=== PATIENT | female | born 1955 | race African-American/Black ===

== ENCOUNTER 2018-11-07 13:11 | Emergency (ER) | payer MEDICAID ==
[2018-11-07 13:27] LABS: ABSOLUTE BASOPHILS # (AUTO) 0.1 10^3/uL (0.0-0.2); ABSOLUTE EOSINOPHILS # (AUTO) 0.1 10^3/uL (0.0-0.6); ABSOLUTE LYMPHOCYTES (AUTO) 2.4 10^3/uL (0.5-4.7); ABSOLUTE MONOCYTES (AUTO) 0.5 10^3/uL (0.1-1.4); ABSOLUTE NEUT (AUTO) 1.6 10^3/uL (1.7-8.2); BASOPHILS % (AUTO) 1.1 % (0-2); EOSINOPHILS % (AUTO) 1.6 % (0-6); HEMATOCRIT 36.1 % (36.0-47.0); HEMOGLOBIN 11.8 g/dL (12.0-15.5); LYMPHOCYTES % (AUTO) 51.6 % (13-45); MEAN CORPUSCULAR HEMOGLOBIN 27.8 pg (27.0-33.4); MEAN CORPUSCULAR HGB CONC 32.7 g/dL (32.0-36.0); MEAN CORPUSCULAR VOLUME 85 fl (80-97); MONOCYTES % (AUTO) 10.2 % (3-13); PLATELET COUNT 530 10^3/uL (150-450); RED BLOOD COUNT 4.24 10^6/uL (3.72-5.28); RED CELL DISTRIBUTION WIDTH 12.4 % (11.5-14.0); SEGMENTED NEUTROPHILS % (AUTO) 35.5 % (42-78); TOTAL CELLS COUNTED % (AUTO) 100 %; WHITE BLOOD COUNT 4.6 10^3/uL (4.0-10.5)
[2018-11-07 13:50] LABS: ALANINE AMINOTRANSFERASE 8 U/L (9-52); ALBUMIN 4.6 g/dL (3.5-5.0); ALKALINE PHOSPHATASE 64 U/L (38-126); ANION GAP 13 (5-19); ASPARTATE AMINO TRANSFERASE 26 U/L (14-36); BILIRUBIN,DIRECT 0.2 mg/dL (0.0-0.4); BILIRUBIN,TOTAL 0.4 mg/dL (0.2-1.3); BLOOD UREA NITROGEN 18 mg/dL (7-20); CALCIUM 9.9 mg/dL (8.4-10.2); CARBON DIOXIDE 29 mmol/L (22-30); CHLORIDE 100 mmol/L (98-107); CREATINE KINASE 60 U/L (30-135); GLUCOSE 136 mg/dL (75-110); POTASSIUM 4.6 mmol/L (3.6-5.0); SODIUM 142.3 mmol/L (137-145); TOTAL PROTEIN 7.6 g/dL (6.3-8.2)
[2018-11-07 14:07] LABS: CREATINE KINASE MB 0.75 ng/mL (<4.55)
[2018-11-07 14:08] LABS: TROPONIN I < 0.012 ng/mL
--- NOTE | 2018-11-07 15:37 | RADIOLOGY REPORT (SQ) ---
EXAM DESCRIPTION: CT HEAD WITHOUT COMPLETED DATE/TIME: 11/07/2018 3:23 pm REASON FOR STUDY: syncpoe COMPARISON: None. TECHNIQUE: Axial images acquired through the brain without intravenous contrast. Images reviewed wi th bone, brain and subdural windows. Additional sagittal and coronal reconstructions were generated. Images stored on PACS. All CT scanners at this facility use dose modulation, iterative reconstruction, and/or weight based d osing when appropriate to reduce radiation dose to as low as reasonably achievable (ALARA). [facility]: Dose Right [facility]: CareDose [facility]: Dose Right [facility]: Teradose 4D [facility]: PSI Systems RADIATION DOSE: CT Rad equipment meets quality standard of care and radiation dose reduction techniq ues were employed. CTDIvol: 53.2 mGy. DLP: 1097 mGy-cm. mGy. LIMITATIONS: None. FINDINGS: VENTRICLES: Normal size and contour. CEREBRUM: No masses. No hemorrhage. No midline shift. No evidence for acute infarction. Normal gra y/white matter differentiation. No areas of low density in the white matter. CEREBELLUM: No masses. No hemorrhage. No alteration of density. No evidence for acute infarction. EXTRAAXIAL SPACES: No fluid collections. No masses. ORBITS AND GLOBE: No intra- or extraconal masses. Normal contour of globe without masses. CALVARIUM: No fracture. PARANASAL SINUSES: No fluid or mucosal thickening. SOFT TISSUES: No mass or hematoma. OTHER: No other significant finding. IMPRESSION: NORMAL BRAIN CT WITHOUT CONTRAST. EVIDENCE OF ACUTE STROKE: NO. COMMENT: Quality ID # [id number]: Final reports with documentation of one or more dose reduction techniques (e.g., Automated exposure control, adjustment of the mA and/or kV according to patient size, use of iterative reconstruction technique) TECHNICAL DOCUMENTATION: JOB ID: [id number] [facility]- All Rights Reserved Reading location - IP/workstation name: [email or web address]
--- NOTE | 2018-11-07 16:27 | ER Document Report ---
ED General - General Chief Complaint: Syncope Stated Complaint: SYNCOPE Time Seen by Provider: 11/07/18 14:49 Notes: Patient is a 63-year-old female presents to the emergency department for syncopal episode. According to EMS report patient was found to be hypotensive with positive orthostatics. Had a syncopal episode with them. This is per nursing staff who spoke with EMS. Upon my evaluation of the patient's she states all she drank this morning was "a little bit of Sprite." Patient states she then walked from her house to [facility]. It is very hot out today, patient states "I tried to stay in the shade when I could." Patient's denying chest pain, shortness of breath, dizziness, weakness, lightheadedness upon my evaluation. Patient has already received 1 L of lactated Ringer's via EMS. Patient states prior to the syncopal episode she felt "really hot" and "lightheaded." Patient states she did not have any chest pain, shortness of breath, or headache. Patient is denying any headache or head trauma but it was an unwitnessed fall. Patient's denying any pain in her neck or back. Patient states she does have a history of seizures and was recently moved to [place] from [place] to live with her daughter. States she was recently changed from Depakote to Trileptal for her seizures. States she does follow-up with a neurologist regularly. Patient states she is unsure of the exact address of where she lives. States she does know the [address] States she is unsure of where her address is compared to the hospital. - Related Data Allergies/Adverse Reactions: Unable to Assess Allergy (Unverified 11/07/18 13:46) Past Medical History - General Information source: Patient, Relative - Social History Smoking Status: Never Smoker Frequency of alcohol use: None Drug Abuse: None Family History: Reviewed & Not Pertinent Patient has suicidal ideation: No Patient has homicidal ideation: No Neurological Medical History: Reports: Hx Seizures Renal/ Medical History: Denies: Hx Peritoneal Dialysis Past Surgical History: Reports: Hx Orthopedic Surgery - pelvis Physical Exam - Vital signs Vitals: Resp 19 11/07/18 13:15 Course - Re-evaluation Re-evalutation: With the help of social work we were able to locate patient's daughter. Patient's daughter is currently at bedside. Patient's daughter states patient "does not eat like she is supposed to." I discussed with patient and daughter need to follow-up with a primary care provider and inevitably neurology in the area. Daughter states patient does hav e an appointment with a primary care provider next week. Patient syncopal episodes do appear to be dehydration related. EKG shows sinus rhythm rate of 62, QTc 374, no ST segment elevations or depres sions noted. Laboratory 11/07/18 11/07/18 11/07/18 12:53 12:53 12:53 WBC 4.6 RBC 4.24 Hgb 11.8 L Hct 36.1 MCV 85 MCH 27.8 MCHC 32.7 RDW 12.4 Plt Count 530 H Seg Neutrophils % 35.5 L Lymphocytes % 51.6 H Monocytes % 10.2 Eosinophils % 1.6 Basophils % 1.1 Absolute Neutrophils 1.6 L Absolute Lymphocytes 2.4 Absolute Monocytes 0.5 Absolute Eosinophils 0.1 Absolute Basophils 0.1 Sodium 142.3 Potassium 4.6 Chloride 100 Carbon Dioxide 29 Anion Gap 13 BUN 18 Creatinine 1.08 Est GFR ( Amer) > 60 Est GFR (Non-Af Amer) 52 L Glucose 136 H Calcium 9.9 Total Bilirubin 0.4 Direct Bilirubin 0.2 Neonat Total Bilirubin Not Reportable Neonat Direct Bilirubin Not Reportable Neonat Indirect Bili Not Reportable AST 26 ALT 8 L Alkaline Phosphatase 64 Creatine Kinase 60 CK-MB (CK-2) 0.75 Troponin I < 0.012 Total Protein 7.6 Albumin 4.6 Urine Color Urine Appearance Urine pH Ur Specific [place] Urine Protein Urine Glucose (UA) Urine Ketones Urine Blood Urine Nitrite Urine Bilirubin Urine Urobilinogen Ur Leukocyte Esterase Urine WBC (Auto) U Hyaline Cast (Auto) Urine Mucus (Auto) Urine Ascorbic Acid 11/07/18 16:25 WBC RBC Hgb Hct MCV MCH MCHC RDW Plt Count Seg Neutrophils % Lymphocytes % Monocytes % Eosinophils % Basophils % Absolute Neutrophils Absolute Lymphocytes Absolute Monocytes Absolute Eosinophils Absolute Basophils Sodium Potassium Chloride Carbon Dioxide Anion Gap BUN Creatinine Est GFR ( Amer) Est GFR (Non-Af Amer) Glucose Calcium Total Bilirubin Direct Bilirubin Neonat Total Bilirubin Neonat Direct Bilirubin Neonat Indirect Bili AST ALT Alkaline Phosphatase Creatine Kinase CK-MB (CK-2) Troponin I Total Protein Albumin Urine Color STRAW Urine Appearance CLEAR Urine pH 8.0 Ur Specific [place] 1.012 Urine Protein NEGATIVE Urine Glucose (UA) NEGATIVE Urine Ketones NEGATIVE Urine Blood NEGATIVE Urine Nitrite NEGATIVE Urine Bilirubin NEGATIVE Urine Urobilinogen NEGATIVE Ur Leukocyte Esterase NEGATIVE Urine WBC (Auto) 1 U Hyaline Cast (Auto) 7 Urine Mucus (Auto) RARE Urine Ascorbic Acid NEGATIVE Head CT 11/07/18 14:50 IMPRESSION: NORMAL BRAIN CT WITHOUT CONTRAST. EVIDENCE OF ACUTE STROKE: NO. Daughter feels confident with patient discharge. Patient stable for discharge. At this time will discharge with return precautions and follow-up recommendations. Verbal discharge instructions given a the bedside and opluis alberto renner for questions given. Medication warnings reviewed. Patient is in agreement with this plan and has verbalized understanding of return precautions and the need for primary care follow-up in the next 24-72 hours. This medical record was dictated with voice recognizing software. There may be grammatical, syntax errors that are unintended. - Vital Signs Vital signs: Temp Pulse Resp BP Pulse Ox 98.1 F 17 167/96 H 100 11/07/18 17:24 11/07/18 17:24 11/07/18 17:24 11/07/18 17:24 - Laboratory Result Diagrams: 11/07/18 12:53 11/07/18 12:53 Laboratory results interpreted by me: 11/07/18 11/07/18 12:53 12:53 Hgb 11.8 L Plt Count 530 H Seg Neutrophils % 35.5 L Lymphocytes % 51.6 H Absolute Neutrophils 1.6 L Est GFR (Non-Af Amer) 52 L Glucose 136 H ALT 8 L Discharge - Discharge Clinical Impression: Dehydration Syncope Qualifiers: Syncope type: heat syncope Encounter type: initial encounter Qualified Code(s): T67.1XXA - Heat syncope, initial encounter Condition: Stable Disposition: HOME, SELF-CARE Instructions: Syncopal Episode ([facility]), Dehydration ([facility]) Additional Instructions: As we discussed you have been seen and treated in the emergency department for a syncopal episode and dehydration. It is very important that you stay well- hydrated and follow-up with your primary care provider. Please make sure you return to the emergency room for any other concerns.
[2018-11-07 16:48] LABS: APPEARANCE,URINE CLEAR; BILIRUBIN,URINE NEGATIVE (NEGATIVE); COLOR,URINE STRAW; GLUCOSE, URINE NEGATIVE (NEGATIVE); KETONES,URINE NEGATIVE (NEGATIVE); LEUKOCYTE ESTERASE,URINE NEGATIVE (NEGATIVE); NITRITE,URINE NEGATIVE (NEGATIVE); PROTEIN,URINE NEGATIVE (NEGATIVE); URINE SPECIFIC GRAVITY 1.012; UROBILINOGEN,URINE NEGATIVE mg/dL (<2.0)
[2018-11-07 17:53] VITALS: BP 164/86
--- NOTE | 2018-11-07 20:05 | EKG REPORT ---
SEVERITY:- ABNORMAL ECG - SINUS RHYTHM PROBABLE LVH WITH SECONDARY REPOL ABNRM : Confirmed by: Laly Kong MD 07-Nov-2018 20:04:17
== END 2018-11-07 17:54 | disposition home or self-care (01) ==
LOC: ER 13:11
DX: R55 Syncope and collapse (principal); E86.0 Dehydration; R56.9 Unspecified convulsions; Z79.899 Other long term (current) drug therapy
CPT/HCPCS: 36415; 70450; 80053; 81001; 82550; 82553; 84484; 85025; 93005; 93010; 99284